=== PATIENT | male | born 1995 | race Caucasian/White ===

== ENCOUNTER 2020-10-30 00:35 | Emergency (ER) | payer SELFPAY ==
[2020-10-30 00:42] VITALS: BP 170/98; PULSE 122; RESP 12; TEMP 36.7; O2SAT 98; BMI 30.3
--- NOTE | 2020-10-30 00:52 | ED.GENADULT ---
HPI - General Adult General Chief complaint: Chest Pain Stated complaint: heart pain Time Seen by Provider: 10/30/20 00:38 Source: patient Mode of arrival: Ambulatory Limitations: no limitations History of Present Illness HPI narrative: Patient is a 24-year-old male who states that approximately 1 week ago after smoking some marijuana he developed left-sided chest discomfort. He states that was fairly well pinpoint on the left side of his chest. It completely resolved. This evening he again smokes marijuana and developed the symptoms. He denies any shortness of breath. He does think that he can reproduce the symptoms by touching the left side of his chest. He has no other associated symptoms and has not tried anything for the symptoms prior to arrival. Related Data Home Medications Medication Instructions Recorded Confirmed BIOTIN/CA/CA PANTOTHENATE/CR 1 tab PO Q DAY #0 04/29/12 (#CENTRUM) Allergies Allergy/AdvReac Type Severity Reaction Status Date / Time No Known Drug Allergies Allergy Verified 10/30/20 00:45 Review of Systems Constitutional Constitutional: Denies headache(s) ENT Ears, Nose, Mouth, and Throat: Denies headache(s) Cardiovascular Cardiovascular: Reports chest pain and Denies dyspnea Respiratory Respiratory: Denies dyspnea Gastrointestinal Gastrointestinal: Denies abdominal pain, Denies nausea and Denies vomiting Musculoskeletal Musculoskeletal: Denies myalgias Integumentary/Breasts Skin/Breast: Denies rash Neurologic Neurologic: Denies headache(s) Hematologic/Lymphatic On Anticoagulants: No Allergic/Immunologic Allergic/Immunologic: Denies urticaria Patient History Medical History No known health problems (11/15/11) Social History Smoking Status: Never smoker Smoking Status: Never smoker alcohol intake frequency: a few times a week Alcohol type: beer Substance Use Type: marijuana Exam Initial Vital Signs Initial Vital Signs: Vital Signs Temperature 98.1 F 10/30/20 00:42 Pulse Rate 122 H 10/30/20 00:42 Respiratory Rate 12 10/30/20 00:42 Blood Pressure 170/98 H 10/30/20 00:42 Pulse Oximetry 98 10/30/20 00:42 Const General: cooperative and comfortable Limitations: mental status not altered HENTN Head: normal to inspection and normocephalic Chest Chest: tenderness (Pinpoint tenderness left-sided chest) Resp Effort & Inspection: normal respiratory effort Auscultation: clear to auscultation bilaterally Cardio Rate: tachycardic Rhythm: regular rhythm GI Inspection: non-distended Palpation: soft Skin Lesions: no lesions Rashes: no rashes Extrem General: capillary refill normal Psych Appearance: grossly normal and well kempt Course Orders Ordered: ED Orders 10/30/20 00:38 EKG-12 Lead Stat 10/30/20 00:52 XR chest 1V Stat Vital Signs Vital signs: Vital Signs - 8 hr 10/30/20 00:42 10/30/20 01:00 10/30/20 01:15 Temperature 98.1 F Pulse Rate 122 H 103 H 97 H Respiratory Rate 12 19 Blood Pressure 170/98 H 179/91 H Pulse Oximetry 98 96 10/30/20 01:30 10/30/20 01:33 10/30/20 01:34 Temperature Pulse Rate 106 H 99 H 99 H Respiratory Rate 20 21 16 Blood Pressure 175/75 H 160/77 H 160/7 H Pulse Oximetry 96 96 96 Medical Decision Making Imaging Data Chest x-ray: Radiologist's Impression: Preliminary read No acute disease in the chest ECG Data Attestation: I personally reviewed and interpreted this ECG as follows: Prior ECG tracings: not available for review Interpretation: Sinus tachycardia Ventricular rate 106 Normal axis Normal QRS Normal QTC No ST T wave changes MDM Narrative Medical decision making narrative: Patient does have pinpoint tenderness in the left side of his chest that is reproducible. His chest x-ray is unremarkable. Was tachycardic upon arrival however this improved during his stay without specific intervention. Low suspicion for ACS. Low suspicion for pulmonary disease has his symptoms are reproducible. I have a suspicion that his symptoms are related to his use of marijuana. Feel we can hold on further workup for now. He was given return precautions and follow-up instructions. He expressed understanding and agreement. Discharge Plan Departure Patient Disposition: Home Clinical Impression: Anterior chest wall pain, Tachycardia Instructions: DI for Tachycardia Activity Restrictions/Additional Instructions: Your exam and chest x-ray and EKG here in the emergency department are unremarkable. Recommend you contact your primary provider for follow-up. Return to the emergency department for any new or worsening symptoms Prescriptions: No Action BIOTIN/CA/CA PANTOTHENATE/CR (#CENTRUM) 1 tab PO Q DAY Qty: 0 RF: 0 Referrals: Wing Veliz MD [Primary Care Provider] -
--- NOTE | 2020-10-30 00:52 | DI.RAD.S_ITS ---
PROCEDURE: XR CHEST 1V INDICATIONS: chest pain TECHNIQUE: One view of the chest was acquired. COMPARISON: None. FINDINGS: Surgical changes and devices: None. Lungs and pleura: Lungs are clear. No pleural effusions or pneumothorax. Mediastinum: Mediastinal contours appear normal. Heart size is normal. Bones and chest wall: No suspicious bony lesions. Overlying soft tissues appear unremarkable. IMPRESSION: Normal portable chest. Note: No significant discrepancy from the preliminary report. Dictated by: Michael Davila M.D. on 10/30/2020 at 7:31 Approved by: Michael Davila M.D. on 10/30/2020 at 7:31
[2020-10-30 01:00] VITALS: BP 179/91; PULSE 103; RESP 19; O2SAT 96
[2020-10-30 01:15] VITALS: PULSE 97
[2020-10-30 01:30] VITALS: BP 175/75; PULSE 106; RESP 20; O2SAT 96
[2020-10-30 01:33] VITALS: BP 160/77; PULSE 99; RESP 21; O2SAT 96
[2020-10-30 01:34] VITALS: BP 160/7; PULSE 99; RESP 16; O2SAT 96
== END 2020-10-30 01:35 | disposition home or self-care (01) ==
PROVIDERS: Emergency Provider Emergency Medicine; Family Provider Family Medicine; PCP Family Medicine
DX: R07.89 Other chest pain (principal); R00.0 Tachycardia, unspecified; F12.90 Cannabis use, unspecified, uncomplicated
CPT/HCPCS: 71045; 93005; 93010; 99283; 99284

== ENCOUNTER → 2021-07-10 14:31 | Outpatient (CLI) | payer OTHER, SELFPAY ==
[2021-07-10 15:43] LABS: COVID19 -Nasal RAPID Negative (Negative)
== END ==
PROVIDERS: Family Provider Family Medicine; PCP Family Medicine; Referring Provider Physician Assistant; Visit Provider Physician Assistant
DX: Z20.822 Contact with and (suspected) exposure to COVID-19 (principal)
CPT/HCPCS: 87635